=== PATIENT | female | born 1965 ===

== ENCOUNTER 2016-12-11 16:52 | Emergency (ER) | payer OTHER ==
[2016-12-11 17:25] VITALS: BP 154/92
[2016-12-11] MEDS ORDERED: Acetaminophen 325 MG Tab PO ONE (17:43)
--- NOTE | 2016-12-11 18:25 | EDM.PDOC ---
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 She had no LOC but she has a headache and she is dizzy when she walks. She has an abraison to the left parietal region. She also has some neck pain on the left side of her neck. She has no nausea or vomiting. She has no numbness or weakness. She has no vision changes. The wound did bleed initially but there is no bleeding now. Onset: Sudden Duration: Hour(s): (at 4pm today) Location: Reports: Head, Neck Quality: Reports: Sharp Severity: Moderate Improves with: Reports: None Worsens with: Reports: Movement Context: Reports: Other (She was cleaning and it fell and hit her in the head) Associated Symptoms: Reports: Headaches. Denies: Confusion, Chest Pain, Cough, Nausea/Vomiting, Shortness of Breath Left Temporal Head Pain Score (Numeric/FACES): 5 - Related Data Allergies Allergy/AdvReac Type Severity Reaction Status Date / Time Penicillins Allergy Rash Verified 12/11/16 17:24 Home Meds: Home Meds Aspirin [Olesya Chewable Aspirin] 81 mg PO DAILY 03/15/14 [History] Levothyroxine [Synthroid] 50 mcg PO ACBRK 03/15/14 [History] Past Medical History - Past Health History Medical/Surgical History: Denies Medical/Surgical History Endocrine/Metabolic History: Reports: Hypothyroidism Social & Family History - Tobacco Use Smoking Status *Q: Never Smoker - Caffeine Use Caffeine Use: Reports: Coffee - Alcohol Use Days Per Week of Alcohol Use: 0 - Recreational Drug Use Recreational Drug Use: No ED ROS GENERAL - Review of Systems Review Of Systems: See Below Constitutional: Reports: No Symptoms HEENT: Reports: Other (Contusion and abrasion to the left parietal region) Respiratory: Reports: No Symptoms Cardiovascular: Reports: No Symptoms Endocrine: Reports: No Symptoms GI/Abdominal: Reports: No Symptoms : Reports: No Symptoms Musculoskeletal: Reports: Neck Pain (Left side) Neurological: Reports: Headache ED EXAM, HEAD INJURY - Physical Exam Exam: See Below Exam Limited By: No Limitations General Appearance: Alert, No Apparent Distress Head: Other (Edema and abrasion to the left parietal region) Eyes: Bilateral Eye: EOMI, PERRL Ears: Normal External Exam Nose: Normal Inspection Neck: Other (Mild tenderness to palpation to the left side of her neck) Respiratory: No Respiratory Distress, Lungs Clear, Normal Breath Sounds Cardiovascular: Regular Rate, Rhythm, No Edema, No Murmur GI/Abdominal Exam (Abbreviated): Soft, Non-Tender, No Organomegaly, No Mass Back Exam: Normal Inspection Extremities: No Evidence of Injury Course - Vital Signs Last Recorded V/S: Last Vital Signs Temp 97.8 F 12/11/16 17:19 Pulse 82 12/11/16 17:19 Resp 16 12/11/16 17:19 BP 154/92 H 12/11/16 17:19 Pulse Ox 100 12/11/16 17:19 - Orders/Labs/Meds Meds: Medications Discontinued Medications Generic Name Dose Route Start Last Admin Trade Name Zuly PRN Reason Stop Dose Admin Acetaminophen 975 mg 12/11/16 17:43 12/11/16 18:37 Tylenol PO 12/11/16 17:44 975 mg NOW ONE Administration - Re-Assessments/Exams Free Text/Narrative Re-Assessment/Exam: 12/11/16 18:[address] of her head and cervical spine. I also ordered some tylenol 975mg by mouth. The CT of her head shows soft tissue swelling within the left parietal scalp. No acute intracranial abnormality is identified. No skull fracture is seen. The CT of her cervical spine shows degenerative change as noted above. No acute fracture or abdominal subluxation is seen. She is doing better. I will discharge her home. Departure - Departure Time of Disposition: 18:55 Disposition: Home, Self-Care 01 Condition: good Clinical Impression: Concussion injury of brain Contusion of scalp Qualifiers: Encounter type: initial encounter Qualified Code(s): S00.03XA - Contusion of scalp, initial encounter Abrasion of scalp Qualifiers: Encounter type: initial encounter Qualified Code(s): S00.01XA - Abrasion of scalp, initial encounter - Discharge Information Referrals: Estee Parham PA [Primary Care Provider] - 1 Week Forms: ED Department Discharge, Return to Work/School Form Additional Instructions: Take tylenol or motrin for a headache. Wash the abrasion with warm soapy water 2 times per day and apply antibiotic ointment after. Do this for 5 days. Rest for the next day. Limit screen time from TV and cell phone. Please return if you are worse.
--- NOTE | 2016-12-11 18:37 | CT ---
Head CT Technique: Multiple axial sections through the brain were obtained. Intravenous contrast was not utilized. Comparison: No previous intracranial study. Findings: Ventricles along with basal cisterns and sulci over the convexities are within normal limits for the patient's age. No abnormal parenchymal densities are seen. No evidence of intracranial hemorrhage. No midline shift or mass effect is seen. Bone window settings were reviewed which shows no discrete calvarial abnormality. Visualized sinuses appear to be clear. Soft tissue swelling is noted within the left parietal scalp. Impression: 1. Soft tissue swelling within the left parietal scalp. 2. No acute intracranial abnormality is identified. No skull fracture is seen. Diagnostic code #2
--- NOTE | 2016-12-11 18:39 | CT ---
CT cervical spine Technique: Multiple axial sections were obtained from above C1 inferiorly to the top of T3. Reconstructed sagittal and coronal images were reviewed. Findings: Moderate disc space narrowing is noted at C5-C6 and C6-C7. Posterior osteophytes are noted at both these levels. Anterior osteophytes are scattered throughout the cervical spine. Vertebral bodies and posterior arches are intact. No fracture is seen. No abnormal subluxation is seen on the reconstructed sagittal images. Moderate left-sided neural foraminal stenosis is noted at C5-C6. Moderate left-sided neural foraminal stenosis is noted at C6-C7. Other neural foramina appear to be patent. No bony central canal stenosis is seen. Degenerative spurring is noted within the uncovertebral joints at C5-C6 and C6-C7 on both sides, worse on the left side. Impression: 1. Degenerative change as noted above. 2. No acute fracture or abnormal subluxation is seen. Diagnostic code #2
== END 2016-12-11 19:22 | disposition home or self-care (01) ==
LOC: JD.ED 16:52
DX: S06.0X0A Concussion without loss of consciousness, initial encounter (principal); S00.03XA Contusion of scalp, initial encounter; S00.01XA Abrasion of scalp, initial encounter; E03.9 Hypothyroidism, unspecified; Z88.0 Allergy status to penicillin; Z79.82 Long term (current) use of aspirin; W20.8XXA Other cause of strike by thrown, projected or falling object, initial encounter; Y99.0 Civilian activity done for income or pay
CPT/HCPCS: 70450; 72125; 99284; A9270